=== PATIENT | male | born 1980 | race Caucasian/White ===

== ENCOUNTER 2016-10-31 23:40 | Emergency (ER) | payer BC ==
[2016-11-01] MEDS ORDERED: Ondansetron INJ* 2 MG/ML VIAL IV ONE (00:10)
[2016-11-01] MEDS ORDERED: NS 0.9% 1000 ML* 2,000 ML IV ONE (00:10)
[2016-11-01 00:53] LABS: Hematocrit 47 % (42-52); Hemoglobin 16.4 g/dl (14.0-18.0); Mean Corpuscular HGB Conc 35 g/dl (31-36); Mean Corpuscular Hemoglobin 29 pg (27-31); Mean Corpuscular Volume 84 fL (80-94); Mean Platelet Volume 11 um3 (7.4-10.4); Red Blood Count 5.63 10^6/ul (4.0-5.4); Red Cell Distribution Width 14 % (10.5-15); White Blood Count 12.9 10^3/ul (3.5-10.8)
[2016-11-01 01:08] LABS: ALT 25 U/L (7-52); AST 22 U/L (13-39); Albumin 4.8 g/dL (3.2-5.2); Alkaline Phosphatase 77 U/L (34-104); Anion Gap 9 mmol/L (2-11); BUN/Creatinine Ratio 18.3 (8-20); Blood Urea Nitrogen 20 mg/dL (6-24); C Reactive Protein 2.05 mg/L (< 5.00); CO2 Carbon Dioxide 24 mmol/L (22-32); Calcium 9.8 mg/dL (8.6-10.3); Chloride 105 mmol/L (101-111); Glucose 151 mg/dL (70-100); Lipase < 10 U/L (11.0-82.0); Potassium 4.3 mmol/L (3.5-5.0); Sodium 138 mmol/L (133-145); Total Protein 7.8 g/dL (6.4-8.9)
[2016-11-01] MEDS ORDERED: Ondansetron ODT TAB* 4 MG PO ONE (02:50)
[2016-11-01] MEDS: NS 0.9% 1000 ML* 2,000 ML IV ONE (03:07)
[2016-11-01 03:29] VITALS: BP 116/70
--- NOTE | 2016-11-01 07:15 | ED ---
Chana Westfall Nilda, scribed for Ken Soto MD on 11/01/16 at 0245 . Abdominal Pain/Male - HPI Summary HPI Summary: Patient is a 36 yo M presenting to [facility] accompanied by girlfriend, with a chief complaint of N/V since 8 hours ago. He reports 7-8 episodes of vomiting with bright red blood in the last few episodes of emesis. Sx began while he was working in the heat. Sx aggravated by dehydration, alleviated by spontaneous resolution. Additionally c/o fatigue, headache, mild CP and abdominal pain which he attributes to excessive retching. - History of Current Complaint Chief Complaint: EDNauseaVomitDiarrh Stated Complaint: VOMITING BLOOD Time Seen by Provider: 11/01/16 02:35 Hx Obtained From: Patient Onset/Duration: Sudden Onset, Lasting Hours - Began 8 hours ago Severity Initially: Moderate Severity Currently: Moderate Pain Intensity: 6 Pain Scale Used: 0-10 Numeric Location: Diffuse Radiates: No Aggravating Factor(s): Other: - Dehydration Alleviating Factor(s): Spontaneous Resolution Associated Signs And Symptoms: Positive: Nausea, Vomiting - Allergies/Home Medications Allergies/Adverse Reactions: Allergies Allergy/AdvReac Type Severity Reaction Status Date / Time No Known Allergies Allergy Verified 10/31/16 23:51 PMH/Surg Hx/FS Hx/Imm Hx GI History: Reports: Other GI Disorders - Celic EENT History: Denies: Hx Deafness - Surgical History Surgery Procedure, Year, and Place: spleen repair at age 16. vasectomy Infectious Disease History: No Infectious Disease History: Denies: Traveled Outside the [place] in Last 30 Days - Family History Known Family History: Positive: Other - Degenerative arthritis - Social History Alcohol Use: Occasionally Substance Use Type: Reports: None Smoking Status (MU): Former Smoker Review of Systems Positive: Fatigue Positive: Chest Pain Positive: Abdominal Pain, Vomiting - Vomitted 7-8 times. Last couple times had blood. , Nausea Positive: Headache All Other Systems Reviewed And Are Negative: Yes Physical Exam - Summary Physical Exam Summary: General: mildly ill-appearing, no pain distress Skin: warm, color reflects adequate perfusion, dry Head: normal Eyes: EOMI, DEBORA ENT: normal Neck: supple, nontender Respiratory: CTA, breath sounds present Cardiovascular: RRR Abdomen: soft, nontender Bowel: present Musculoskeletal: normal, strength/ROM intact Neurological: normal, sensory/motor intact, A&O x3 Psychological: affect/mood appropriate Triage Information Reviewed: Yes Vital Signs On Initial Exam: Initial Vitals Temp Pulse Resp BP Pulse Ox 97.7 F 97 18 135/74 97 10/31/16 23:46 10/31/16 23:46 10/31/16 23:46 10/31/16 23:46 10/31/16 23:46 Vital Signs Reviewed: Yes - Romi Coma Scale Coma Scale Total: 15 Diagnostics - Vital Signs Vital Signs Temp Pulse Resp BP Pulse Ox 11/01/16 02:00 85 120/77 98 11/01/16 01:30 82 129/79 98 11/01/16 01:00 83 98 11/01/16 00:30 87 131/88 97 11/01/16 00:28 89 97 11/01/16 00:13 90 96 11/01/16 00:11 137/93 10/31/16 23:46 97.7 F 97 18 135/74 97 - Laboratory Lab Results: Lab Results 11/01/16 11/01/16 11/01/16 Range/Units 00:45 00:45 00:45 WBC 12.9 H (3.5-10.8) 10^3/ul RBC 5.63 H (4.0-5.4) 10^6/ul Hgb 16.4 (14.0-18.0) g/dl Hct 47 (42-52) % MCV 84 (80-94) fL MCH 29 (27-31) pg MCHC 35 (31-36) g/dl RDW 14 (10.5-15) % Plt Count 182 (150-450) 10^3/ul MPV 11 H (7.4-10.4) um3 Neut % (Auto) 90.8 H (38-83) % Lymph % (Auto) 6.8 L (25-47) % Alcorn % (Auto) 2.0 (1-9) % Eos % (Auto) 0.1 (0-6) % Baso % (Auto) 0.3 (0-2) % Absolute Neuts (auto) 11.8 H (1.5-7.7) 10^3/ul Absolute Lymphs (auto) 0.9 L (1.0-4.8) 10^3/ul Absolute Monos (auto) 0.3 (0-0.8) 10^3/ul Absolute Eos (auto) 0 (0-0.6) 10^3/ul Absolute Basos (auto) 0 (0-0.2) 10^3/ul Absolute Nucleated RBC 0.01 10^3/ul Nucleated RBC % 0.1 Sodium 138 (133-145) mmol/L Potassium 4.3 (3.5-5.0) mmol/L Chloride 105 (101-111) mmol/L Carbon Dioxide 24 (22-32) mmol/L Anion Gap 9 (2-11) mmol/L BUN 20 (6-24) mg/dL Creatinine 1.09 (0.67-1.17) mg/dL Est GFR ( Amer) 99.0 (>60) Est GFR (Non-Af Amer) 77.0 (>60) BUN/Creatinine Ratio 18.3 (8-20) Glucose 151 H (70-100) mg/dL Lactic Acid 1.0 (0.5-2.0) mmol/L Calcium 9.8 (8.6-10.3) mg/dL Total Bilirubin 0.90 (0.2-1.0) mg/dL AST 22 (13-39) U/L ALT 25 (7-52) U/L Alkaline Phosphatase 77 (34-104) U/L C-Reactive Protein 2.05 (< 5.00) mg/L Total Protein 7.8 (6.4-8.9) g/dL Albumin 4.8 (3.2-5.2) g/dL Globulin 3.0 (2-4) g/dL Albumin/Globulin Ratio 1.6 (1-3) Lipase < 10 L (11.0-82.0) U/L Result Diagrams: 11/01/16 00:45 11/01/16 00:45 Lab Statement: Any lab studies that have been ordered have been reviewed, and results considered in the medical decision making process. Abdominal Pain Fem Course/Dx - Course Course Of Treatment: PROBABLE HEAT EXAUSTION. IMPROVED IN ED. DISCHARGE HOME STABLE. NO CRITICAL CARE TIME. Assessment/Plan: Medications reviewed. Elevated BP noted and advised to follow up. - Diagnoses Provider Diagnoses: Dehydration, Vomiting Discharge - Discharge Plan Condition: Stable Disposition: HOME Patient Education Materials: Dehydration (ED), Acute Nausea and Vomiting (ED) Referrals: Darin Mueller MD [Primary Care Provider] - Additional Instructions: FOLLOW UP WITH YOUR DOCTOR. RETURN TO THE EMERGENCY DEPARTMENT FOR ANY WORSENING OF YOUR CONDITION OR QUESTIONS OR CONCERNS. The documentation as recorded by the Chana nobles Nilda accurately reflects the service I personally performed and the decisions made by me, Ken Soto MD.
== END 2016-11-01 03:37 | disposition home or self-care (01) ==
LOC: ED 23:40
DX: R11.2 Nausea with vomiting, unspecified (principal); E86.0 Dehydration; R51 Headache; R53.83 Other fatigue; R07.9 Chest pain, unspecified; Z87.891 Personal history of nicotine dependence
CPT/HCPCS: 36415; 80053; 83605; 83690; 85025; 86140; 96374; 99283; A9270-GY; J2405

== ENCOUNTER 2017-09-05 00:35 | Observation (INO) | payer BC ==
--- NOTE | 2017-09-05 01:03 | ED ---
Abdominal Pain/Male - HPI Summary HPI Summary: 37 y/o male presents to the ED c/o constant ABD pain starting 2 nights ago. Pain described as a dull ache. Pain is mostly in the RLQ. Associated sx: mild nausea. No history of APPY. Denies blood in the urine. This is scribe Ed Lizet documenting for attending, Bello Zapata MD. - History of Current Complaint Chief Complaint: EDAbdPain Stated Complaint: RT SIDE ABD TENDERNESS Time Seen by Provider: 09/05/17 01:02 Hx Obtained From: Patient Onset/Duration: Lasting Days, Still Present Timing: Constant Pain Intensity: 3 Location: Discrete At: RLQ Character: Dull Aggravating Factor(s): Nothing Alleviating Factor(s): Nothing Associated Signs And Symptoms: Positive: Nausea - Allergies/Home Medications Allergies/Adverse Reactions: Allergies Allergy/AdvReac Type Severity Reaction Status Date / Time No Known Allergies Allergy Verified 09/05/17 00:40 PMH/Surg Hx/FS Hx/Imm Hx Previously Healthy: No GI History: Reports: Other GI Disorders - Celic Sensory History: Denies: Hx Deafness - Surgical History Surgery Procedure, Year, and Place: spleen repair at age 16. vasectomy Infectious Disease History: No Infectious Disease History: Denies: Traveled Outside the [place] in Last 30 Days - Family History Known Family History: Positive: Other - Degenerative arthritis - Social History Alcohol Use: Occasionally Substance Use Type: Reports: None Smoking Status (MU): Former Smoker Review of Systems Constitutional: Negative Eyes: Negative ENT: Negative Cardiovascular: Negative Respiratory: Negative Positive: Abdominal Pain, Nausea Genitourinary: Negative Musculoskeletal: Negative Skin: Negative Neurological: Negative Psychological: Normal All Other Systems Reviewed And Are Negative: Yes Physical Exam - Summary Physical Exam Summary: Appearance: Well appearing, no pain distress Skin: warm, dry, reflects adequate perfusion Head/face: normal Eyes: EOMI, DEBORA ENT: normal Neck: supple, non-tender Respiratory: CTA, breath sounds present Cardiovascular: RRR, pulses symmetrical Abdomen: Tenderness in the RLQ, soft Bowel: present Musculoskeletal: normal, strength/ROM intact Neuro: normal, sensory motor intact, A&Ox3 Triage Information Reviewed: Yes Vital Signs On Initial Exam: Initial Vitals Temp Pulse Resp BP Pulse Ox 98.0 F 88 18 142/94 96 09/05/17 00:38 09/05/17 00:38 09/05/17 00:38 09/05/17 00:38 09/05/17 00:38 Vital Signs Reviewed: Yes Diagnostics - Vital Signs Vital Signs Temp Pulse Resp BP Pulse Ox 09/05/17 00:38 98.0 F 88 18 142/94 96 - Laboratory Result Diagrams: 09/05/17 01:47 09/05/17 01:47 Lab Statement: Any lab studies that have been ordered have been reviewed, and results considered in the medical decision making process. - CT ABD/PEL CT CT Interpretation: Positive (See Comments) - acute appendicitis CT Interpretation Completed By: Radiologist Re-Evaluation - Re-Evaluation 1 Re-Evaluation Time: 04:39 Comment: discuss test results, plan of care Abdominal Pain Fem Course/Dx - Course Assessment/Plan: 37 y/o male presents to the ED c/o constant ABD pain starting 2 nights ago. Pain described as a dull ache. Pain is mostly in the RLQ. Associated sx: mild nausea. No history of APPY. Denies blood in the urine. ABD/ PEL CT shows acute appendicitis. - Diagnoses Differential Diagnosis/HQI/PQRI: Appendicitis, Diverticulitis, Pancreatitis, Ureteral Stone Provider Diagnoses: Appendicitis - Provider Notifications Discussed Care Of Patient With: John Sparks Time Discussed With Above Provider: 04:50 Instructed by Provider To: Admit As Inpatient Discharge - Sign-Out/Discharge Documenting (check all that apply): Patient Departure - Discharge Plan Condition: Stable Disposition: ADMITTED TO [facility] - Billing Disposition and Condition Condition: STABLE Disposition: Admitted to [facility]
[2017-09-05] MEDS ORDERED: NS 0.9% 1000 ML* 1,000 ML IV ONE (01:19)
[2017-09-05 01:58] LABS: ABS Basophils 0.1 10^3/ul (0-0.2); ABS Eosinophils 0.3 10^3/ul (0-0.6); ABS Lymphocytes 2.6 10^3/ul (1.0-4.8); ABS Monocytes 0.8 10^3/ul (0-0.8); ABS Neutrophils 6.8 10^3/ul (1.5-7.7); ABS Nucleated RBC 0 10^3/ul; Eosinophil % 2.4 % (0-6); Hematocrit 44 % (42-52); Hemoglobin 15.1 g/dl (14.0-18.0); Lymphocyte % 24.6 % (25-47); Mean Corpuscular HGB Conc 35 g/dl (31-36); Mean Corpuscular Hemoglobin 29 pg (27-31); Mean Corpuscular Volume 83 fL (80-94); Mean Platelet Volume 10.2 um3 (7.4-10.4); Nucleated Red Blood Cells % 0.2; Platelet Count 195 10^3/ul (150-450); Red Blood Count 5.28 10^6/ul (4.00-5.40); Red Cell Distribution Width 15 % (10.5-15); White Blood Count 10.6 10^3/ul (3.5-10.8)
[2017-09-05 02:15] LABS: EGFR Non-African American 85.5 (>60)
[2017-09-05 02:20] LABS: INR 0.94 (0.77-1.02)
[2017-09-05] MEDS ORDERED: Iohexol 300* (CONTRAST) 10 ML SDV IV ONE (02:57)
[2017-09-05 02:59] LABS: Urine Appearance Clear; Urine Blood Negative (Negative); Urine Color Yellow; Urine Ketones Negative (Negative); Urine Protein Negative (Negative); Urine Specific Gravity 1.013 (1.010-1.030); Urine Urobilinogen Negative (Negative)
[2017-09-05] MEDS ORDERED: Piperacillin/Tazobac ADVAN(*) 3.375 GM in NS 0.9% 100 ML* 100 ML IVPB ONE (04:35)
[2017-09-05] MEDS ORDERED: NS 0.9% 1000 ML* 1,000 ML IV SCH (04:45)
[2017-09-05] MEDS ORDERED: Piperacillin/Tazobac (*) 3.375 GM BAG ONE (05:03)
[2017-09-05] MEDS ORDERED: Morphine INJ* 2 MG/ML 1 ML SYRINGE (TWO MG - NEW SYRINGE VERSION) IV PRN (05:08)
[2017-09-05] MEDS ORDERED: Metoclopramide IV* 5 MG/ML 2 ML VIAL IV PRN (05:09)
--- NOTE | 2017-09-05 08:06 | RAD ---
INDICATION: Right lower quadrant abdominal pain. COMPARISON: Comparison is made with a prior CT of the abdomen and pelvis from June 02, 2016. TECHNIQUE: A CT scan of the abdomen and pelvis was performed with intravenous and with oral contrast following intravenous injection of 125 ml of Omnipaque 300 nonionic contrast. Contiguous axial sections were obtained from the lung bases through the symphysis pubis. Images were reconstructed in the coronal and sagittal planes. FINDINGS: There is mild dependent bilateral lower lobe subsegmental atelectasis. No pleural effusion is present. The liver is decreased in attenuation consistent with fatty infiltration. No significant focal hepatic abnormality is seen. No calcified gallstones are noted. The spleen is upper limits of normal in size and unchanged. The pancreas appears to be within normal limits. The kidneys and adrenal glands are normal in size. No hydronephrosis is seen. No significant focal renal abnormality is seen. The aorta is normal in caliber and demonstrates homogeneous contrast opacification. No significant enlarged retroperitoneal lymph nodes are seen. The stomach, small and large bowel appear nondistended. There is an appendicolith in the proximal appendix. The appendix is dilated with interstitial stranding in the adjacent fat most consistent with acute appendicitis. No abscess is seen. There are few scattered diverticuli noted within the colon. No free intraperitoneal air or fluid is seen. No significant focal osseous abnormality is seen. IMPRESSION: 1. FINDINGS CONSISTENT WITH ACUTE APPENDICITIS. 2. HEPATIC STEATOSIS.
[2017-09-05] MEDS ORDERED: ZOSYN 3.375 GM Q6H - Intermittant 30 min Infusion IVPB SCH ×2 (11:00)
--- NOTE | 2017-09-05 11:52 | HP ---
AMENDED REPORT NOW INCLUDES COSIGNER DESIGNATION - ESIGNED BEFORE ADJUSTMENT CC: Dr. Mueller * DATE OF ADMISSION: 09/05/2017. ATTENDING SURGEON: Dr. Shashi Aguilar * (SALAS Herrera dictating). CHIEF COMPLAINT: Right lower quadrant abdominal pain. HISTORY OF PRESENT ILLNESS: This is a generally healthy, 37-year-old male who began to feel right lower quadrant abdominal discomfort on Monday, 2017. He managed through the day, described an achy pain that remained in the right lower quadrant through Monday associated somewhat with some anorexia, but no fever or chills, nausea or vomiting. He states that yesterday the pain began to radiate to the back and he presented to the ED. His last bowel movement was yesterday which he described as soft. He has not had any symptoms. He has not had any prior similar symptoms. PAST MEDICAL HISTORY: Some cervical degenerative disk disease, celiac disease, and GERD. 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 CURRENT MEDICATIONS: 1. Ibuprofen 400 mg prn for joint pain. 2. Omeprazole 20 mg once daily prn for GERD. DRUG ALLERGIES: None known. FAMILY HISTORY: Negative for anesthesia problems, bleeding or clotting disorders. SOCIAL HISTORY: The patient is . 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 He denies use of tobacco. He drinks less than one drink per day and denies any other drug use. REVIEW OF SYSTEMS: General: No recent constitutional symptoms or acute illnesses other than described in the HPI. HEENT: No problems reported. Cardiovascular: No chest pain, palpitations, history of heart murmur. Respiratory: No history of asthma, chronic cough or shortness of breath. GI: As above per HPI, no additions. : No dysuria or hematuria. Endocrine: No thyroid dysfunction or diabetes. Remainder of review of system is negative. PHYSICAL EXAMINATION GENERAL: Well-nourished, well-developed male in no acute distress. He appears comfortable. SKIN: Warm and dry, no suspicious rashes or lesions. VITAL SIGNS: Height 6'1", weight 207 pounds. Temperature 98.2, blood pressure 119/68, pulse 79, respirations 17, room air saturation 99 percent. HEENT: Pupils equal and round, reactive. EOM's intact. No conjunctival pallor. Oropharynx: Mucus membranes slightly dry. Teeth in good repair. No intra-oral lesions. NECK: No lymphadenopathy, thyromegaly, or masses. LUNGS: Clear to auscultation, no wheezes. HEART: Regular rate and rhythm. No murmur noted. ABDOMEN: Bowel sounds present. Flat, nondistended. Soft with well-localized tenderness to deep palpation at McBurney's point. There is some mild referred tenderness. The remainder of the abdomen is soft, nontender and without peritoneal signs. No palpable inguinal hernias. BACK: No spinous process or CVA tenderness. EXTREMITIES: No edema. GENITALIA: Otherwise not examined. RECTAL: Not done. NEUROLOGIC: Grossly intact. PERTINENT LABORATORY DATA: White blood cell count 10,600, hemoglobin 15.1. CMP is essentially normal, including lactic acid. Urinalysis is essentially normal. CT scan with oral and IV contrast was reviewed which shows a fecalith in the proximal appendix with enlargement of the appendix and periappendiceal fat stranding consistent with acute appendicitis. No evidence of abscess. IMPRESSION: Acute appendicitis. PLAN: Likely laparoscopic appendectomy pending confirmation of exam and CT finding by the surgeon of record, which at this point is likely to be Dr. Aguilar. SALAS HERRERA [id number]/CPS #: [id number] MTDD
[2017-09-05] MEDS ORDERED: fentaNYL* 50 MCG/ML 2 ML VIAL (100 MCG VIAL) ONE ×3 (13:13→14:43)
[2017-09-05] MEDS ORDERED: Midazolam* 1 MG/ML 5 ML VIAL (5 MG) ONE (13:13)
[2017-09-05] MEDS ORDERED: Bupivacaine 0.25% W/EPI* 10 ML SDV ONE (13:48)
[2017-09-05] MEDS ORDERED: ceFOXitin 2 GM IVPREMIX* 2 GM/50 ML BAG ONE (13:50)
[2017-09-05] MEDS ORDERED: Propofol* 10 MG/ML 20 ML BTL IV PUSH ONE (14:25)
[2017-09-05] MEDS ORDERED: Succinylcholine* 20 MG/ML 10 ML VIAL ONE (14:25)
[2017-09-05] MEDS ORDERED: Ketorolac INJ* 30 MG/ML 1 ML VIAL ONE (14:25)
[2017-09-05] MEDS ORDERED: Dexamethasone IV* 4 MG/ML 1 ML (4 MG) ONE (14:25)
[2017-09-05] MEDS ORDERED: Ondansetron INJ* 2 MG/ML VIAL ONE (14:25)
[2017-09-05] MEDS ORDERED: Lidocaine 2% PF * 5 ML VIAL ONE (14:25)
[2017-09-05] MEDS ORDERED: HYDROmorphone INJ* 0.5 MG/0.5 ML SYRINGE IV PRN (14:29)
[2017-09-05] MEDS ORDERED: DiMENhydriNATE IV* 50 MG/ML VIAL IV PUSH PRN (14:29)
[2017-09-05] MEDS ORDERED: Naloxone* 0.4 MG/ML 1 ML VIAL IV PRN (14:29)
[2017-09-05] MEDS ORDERED: Acetaminophen IV 1GM/100ML * 1,000 MG/100 ML VIAL IVPB ONE (14:29)
[2017-09-05] MEDS ORDERED: Atracurium* 10 MG/ML 10 ML VIAL ONE (14:36)
[2017-09-05] MEDS ORDERED: Acetaminophen IV 1GM/100ML * 100 ML ONE (15:30)
[2017-09-05] MEDS ORDERED: Metoclopramide IV* 5 MG/ML 2 ML VIAL ONE (15:49)
[2017-09-05] MEDS ORDERED: HYDROmorphone INJ* 0.5 MG/0.5 ML SYRINGE ONE (16:20)
[2017-09-05] MEDS ORDERED: oxyCODONE/Acetamin 5/325 MG* TAB ONE (18:02)
[2017-09-05 19:14] VITALS: BP 124/74
--- NOTE | 2017-09-06 05:22 | OP ---
CC: Dr. Mueller.* DATE OF OPERATION: 09/05/17 - ROOM #333 DATE OF : 82. SURGEON: Shashi Aguilar MD. PROTOTYPE ENGINEER: None. ANESTHESIOLOGIST: Dr. Mccollum. ANESTHESIA: General anesthetic, local infiltration by the surgeon. PRE-OP DIAGNOSIS: Appendicitis. POST-OP DIAGNOSIS: Appendicitis. OPERATIVE PROCEDURE: Laparoscopic appendectomy. DESCRIPTION OF PROCEDURE: The patient was supine in the operating room table. After adequate general anesthetic, compression stockings, Gloria Hugger warmer, and intravenous antibiotics, the abdomen was prepped with antiseptic, and draped in a sterile fashion. Local infiltrative anesthesia was administered, 1 % lidocaine and Marcaine and small umbilical incision was created. Blunt port cannula was placed. Insufflation was carried out with carbon-dioxide with additional cannulae, a 5 mm left lower quadrant, left mid abdomen were placed through small stab wounds under direct vision. Appendix had acute changes, but without any gangrene or abscess or perforation. The mesoappendix was divided using carvajal load EndoGIA and the base of the appendix was a martinez load EndoGIA. The appendix was placed in a retrieval bag and brought out through the umbilical site. The operative field was in good condition and the staple line was examined and it was in good condition. The appendix was removed in a retrieval bag. Pneumoperitoneum was allowed to escape, umbilical fascia was closed with 0-Vicryl and the skin with 5-0 Vicryl in all cases, followed by Steri-Strips. He tolerated the procedure well and was awakened and brought to the recovery in good condition. No complications. No drains. Pathologic specimen is appendix. Sponge and instrument counts were correct. Estimated blood loss 30 mL. [id number]/CPS #: [id number] [facility]
--- NOTE | 2017-09-07 00:48 | DS ---
CC: Dr. Darin Mueller * DISCHARGE SUMMARY: DATE OF ADMISSION: 09/05/17 DATE OF DISCHARGE: 09/05/17 PRINCIPAL ADMITTING DIAGNOSIS: Acute appendicitis. OPERATIVE PROCEDURE ON THIS ADMISSION: Laparoscopic appendectomy. HOSPITAL COURSE: Patient came to the hospital in the wee hours of the morning of 09/05/17, was admitted to the surgical floor and taken to the operating room later that day for laparoscopic appendectomy. He had an uneventful postoperative course and was discharged home from the recovery room and will follow up in the office in the near future. [id number]/CPS #: [id number] MTDD
== END 2017-09-05 19:00 | disposition home or self-care (01) ==
LOC: ED 00:35 → INTOOBSV 04:56 → SSU 04:56
PROVIDERS: ADMIT Surgery; ATTEND Surgery
DX: K35.80 Unspecified acute appendicitis (principal); K90.0 Celiac disease; K21.9 Gastro-esophageal reflux disease without esophagitis
CPT/HCPCS: 36415; 74177; 80053; 81003; 83605; 83690; 85025; 85610; 85730; 88304; 96365; 99284; A9270-GY; C1776; G0378; J0330; J0694; J1100; J1170; J1885; J2250; J2405; J2543; J2704; J2765; J3010; Q9967

== ENCOUNTER 2020-12-14 10:18 | Inpatient (IN) ==
[2020-12-14 12:33] LABS: Hematocrit 48 % (42-52); Hemoglobin 16.6 g/dL (14.0-18.0); Mean Corpuscular HGB Conc 35 g/dL (31-36); Mean Corpuscular Hemoglobin 30 pg (27-31); Mean Corpuscular Volume 87 fL (80-94); Mean Platelet Volume 9.3 fL (7.4-10.4); Platelet Count 329 10^3/uL (150-450); Red Blood Count 5.48 10^6 /uL (4.18-5.48); Red Cell Distribution Width 13 % (10-15); White Blood Count 21.4 10^3/uL (3.5-10.8)
[2020-12-14] MEDS ORDERED: diPHENhydraMINE IV 50 MG/ML 1 ml VIAL (BENADRYL) IV ONE (12:34)
[2020-12-14] MEDS ORDERED: Ondansetron 4 mg VIAL 2 MG/ML 2 ml VIAL IV ONE (12:34)
[2020-12-14 12:44] LABS: ABS Lymphocytes 1.5 10^3/ul (1.0-4.8); ABS Monocytes 1.7 10^3/ul (0-0.8); ABS Neutrophils 18.1 10^3/ul (1.5-7.7); Lymphocyte % 6.9 %
[2020-12-14 12:49] LABS: Albumin 4.1 g/dL (3.2-5.2); Calcium 9.4 mg/dL (8.6-10.3); Potassium 4.9 mmol/L (3.5-5.0); Total Protein 8.1 g/dL (6.4-8.9)
[2020-12-14] MEDS ORDERED: Iohexol 350 (CONTRAST) 500 ML MDV IV ONE (13:27)
[2020-12-14] MEDS ORDERED: Metoclopramide 5 MG/ML VIAL (10 mg) IV ONE (13:46)
[2020-12-14] MEDS ORDERED: Heparin 5000 UNITS/ML 1 mL VIAL IV SCH (14:00)
[2020-12-14] MEDS ORDERED: Cefepime 1 GM in Dextrose 1 GM/50 ML BAG IV ONE (14:00)
[2020-12-14] MEDS: Heparin DRIP 25,000 UNITS BAG 25,000 UNITS/500 ML BAG IV SCH (15:01)
[2020-12-14 15:50] LABS: Activated Partial Thrombo Time 36.6 seconds (26.0-38.0)
[2020-12-14] MEDS ORDERED: Morphine 4 MG/ML VIAL (1 ml) IV ONE (16:21)
[2020-12-14] MEDS ORDERED: Ondansetron 4 mg VIAL 2 MG/ML 2 ml VIAL IV PRN (16:27)
[2020-12-14 16:44] LABS: INR 1.36 (0.86-1.15)
[2020-12-14] MEDS ORDERED: Cefepime ADVAN 1 GM in NS 0.9% 50 ML 50 ML IVPB SCH (21:00)
[2020-12-15] MEDS ORDERED: Cefepime 1 GM in Dextrose 1 GM/50 ML BAG IV SCH (03:00)
[2020-12-15 04:11] LABS: Hematocrit 42 % (42-52); Hemoglobin 14.3 g/dL (14.0-18.0); Mean Corpuscular HGB Conc 34 g/dL (31-36); Mean Corpuscular Hemoglobin 30 pg (27-31); Mean Corpuscular Volume 87 fL (80-94); Mean Platelet Volume 9.5 fL (7.4-10.4); Platelet Count 256 10^3/uL (150-450); Red Blood Count 4.76 10^6 /uL (4.18-5.48); Red Cell Distribution Width 13 % (10-15); White Blood Count 15.8 10^3/uL (3.5-10.8)
[2020-12-15 04:27] LABS: ABS Basophils 0.1 10^3/ul (0-0.2); ABS Lymphocytes 1.9 10^3/ul (1.0-4.8); ABS Monocytes 1.6 10^3/ul (0-0.8); ABS Neutrophils 12.2 10^3/ul (1.5-7.7); Eosinophil % 0.2 %; Lymphocyte % 11.9 %
[2020-12-15 04:34] LABS: Calcium 8.8 mg/dL (8.6-10.3); Potassium 4.3 mmol/L (3.5-5.0)
[2020-12-15] MEDS: Heparin DRIP 25,000 UNITS BAG 25,000 UNITS/500 ML BAG IV SCH (07:46)
[2020-12-15] MEDS: HYDROmorphone 0.5 MG/0.5 ML SYRINGE IV SLOW PU PRN ×3 (12:33→21:31)
[2020-12-16] MEDS: Heparin DRIP 25,000 UNITS BAG 25,000 UNITS/500 ML BAG IV SCH ×2 (01:30→19:47)
[2020-12-16] MEDS: HYDROmorphone 0.5 MG/0.5 ML SYRINGE IV SLOW PU PRN ×3 (01:31→11:19)
[2020-12-16 06:46] LABS: Hematocrit 40 % (42-52); Hemoglobin 13.9 g/dL (14.0-18.0); Mean Corpuscular HGB Conc 35 g/dL (31-36); Mean Corpuscular Hemoglobin 30 pg (27-31); Mean Corpuscular Volume 87 fL (80-94); Mean Platelet Volume 10.3 fL (7.4-10.4); Platelet Count 225 10^3/uL (150-450); Red Blood Count 4.62 10^6 /uL (4.18-5.48); Red Cell Distribution Width 13 % (10-15); White Blood Count 16.2 10^3/uL (3.5-10.8)
[2020-12-16 07:04] LABS: Calcium 8.8 mg/dL (8.6-10.3); Potassium 3.8 mmol/L (3.5-5.0)
[2020-12-16 07:10] LABS: ABS Basophils 0.1 10^3/ul (0-0.2); ABS Lymphocytes 1.8 10^3/ul (1.0-4.8); ABS Monocytes 1.6 10^3/ul (0-0.8); ABS Neutrophils 12.7 10^3/ul (1.5-7.7); Eosinophil % 0.2 %; Lymphocyte % 10.9 %
[2020-12-16 18:37] LABS: Urine Creatinine Concentration 210.03 mg/dL
[2020-12-17 06:18] LABS: ABS Basophils 0.1 10^3/ul (0-0.2); ABS Eosinophils 0.1 10^3/ul (0-0.6); ABS Lymphocytes 1.8 10^3/ul (1.0-4.8); ABS Monocytes 1.1 10^3/ul (0-0.8); ABS Neutrophils 8.3 10^3/ul (1.5-7.7); Eosinophil % 0.9 %; Hematocrit 38 % (42-52); Hemoglobin 13.5 g/dL (14.0-18.0); Lymphocyte % 15.6 %; Mean Corpuscular HGB Conc 36 g/dL (31-36); Mean Corpuscular Hemoglobin 30 pg (27-31); Mean Corpuscular Volume 85 fL (80-94); Mean Platelet Volume 9.7 fL (7.4-10.4); Platelet Count 240 10^3/uL (150-450); Red Blood Count 4.45 10^6 /uL (4.18-5.48); Red Cell Distribution Width 13 % (10-15); White Blood Count 11.3 10^3/uL (3.5-10.8)
[2020-12-17 06:38] LABS: Calcium 8.9 mg/dL (8.6-10.3); Potassium 3.6 mmol/L (3.5-5.0)
[2020-12-17 15:28] VITALS: BP 123/74
[2020-12-17] MEDS ORDERED: Amoxicillin/Clavul 500/125 TAB (Augmentin 500 mg tab) PO ONE (16:28)
== END 2020-12-17 16:50 | disposition home or self-care (01) | DRG 134 ==
LOC: ED 10:18 → SUATTDRO 16:23 → EDHOLD 16:23 → MEDTELE 19:46
PROVIDERS: ADMIT Internal Medicine; ATTEND Internal Medicine